=== PATIENT | female | born 1970 | race Caucasian/White ===

== ENCOUNTER 2020-04-09 01:09 | Emergency (ER) | payer BC ==
[~2020-04-09] VITALS: Ht 160 cm; Wt 54.0 kg
--- NOTE | 2020-04-09 01:20 | NUR ---
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 +NAUSEA, - VOMITING. LMP: 2 WEEKS AGO.
[2020-04-09] MEDS ORDERED: DICYCLOMINE HCL INJ 20 MG/2 ML AMPUL IM ONE ×2 (01:31→03:30)
[2020-04-09] MEDS ORDERED: ONDANSETRON HCL/PF 4 MG/2 ML VIAL ONE (01:31)
[2020-04-09] MEDS: DICYCLOMINE HCL INJ 20 MG/2 ML AMPUL IM ONE ×2 (01:39→03:35)
[2020-04-09] MEDS: IV NS 0.9% 1,000 ML BAG IV ONE (01:40)
[2020-04-09] MEDS: ONDANSETRON HCL/PF 4 MG/2 ML VIAL IVP ONE (01:40)
--- NOTE | 2020-04-09 01:40 | NUR ---
PT SIGNED WAIVER TO PROCEED WITH CT
--- NOTE | 2020-04-09 01:44 | NUR ---
PT WAS RAKEN TO CT
[2020-04-09 01:58] LABS: BILIRUBIN,URINE NEGATIVE (NEGATIVE); COLOR,URINE YELLOW (YELLOW); LEUKOCYTE ESTERASE ,URINE NEGATIVE (NEGATIVE); NITRITE, URINE NEGATIVE (NEGATIVE); PH,URINE 6.5 (5.0-8.0); PROTEIN,URINE NEGATIVE (NEGATIVE); UGLUCOSE NEGATIVE (NEGATIVE); UROBILINOGEN,URINE 0.2 EU/dL (0.2)
[2020-04-09] MEDS ORDERED: KETOROLAC TROMETHAMINE INJ 30 MG/ML VIAL ONE (02:01)
[2020-04-09 02:03] LABS: CARBON DIOXIDE 28 mmol/L (21-32); CHLORIDE 101 mmol/L (98-107); CREATININE 0.9 mg/dL (0.6-1.3); GLUCOSE 130 mg/dL (74-106); POTASSIUM 3.5 mmol/L (3.5-5.1); SODIUM SERUM 140 mmol/L (136-145); UREA NITROGEN, BLOOD 19 mg/dL (7-18)
[2020-04-09 02:04] LABS: BASOPHILS % (AUTO) 0.7 % (0.0-2.0); EOSINOPHILS % (AUTO) 1.5 % (0.0-6.0); HEMATOCRIT 41 % (33-45); HEMOGLOBIN 13.8 g/dL (11.5-14.8); LYMPHOCYTES # (AUTO) 1.8 /CMM (0.8-4.8); LYMPHOCYTES % (AUTO) 26.2 % (20.0-44.0); MEAN CORPUSCULAR HGB CONC 34 g/dl (31.0-36.0); MEAN CORPUSCULAR VOLUME 86 fL (82-100); MONOCYTES # (AUTO) 0.7 /CMM (0.1-1.30); MONOCYTES % (AUTO) 10.2 % (2.0-12.0); NEUTROPHILS # (AUTO) 4.2 /CMM (1.8-8.9); NEUTROPHILS % (AUTO) 61.4 % (43.0-81.0); PLATELET COUNT (AUTO) 245 /CMM (150-450); RED BLOOD CELL COUNT(AUTO) 4.73 MIL/uL (4.0-5.2); WHITE BLOOD COUNT (AUTO) 6.8 K/uL (4.3-11.0)
[2020-04-09] MEDS ORDERED: SIMETHICONE 80 MG TAB.CHEW ONE (02:04)
[2020-04-09] MEDS: SIMETHICONE 80 MG TAB.CHEW PO ONE (02:05)
[2020-04-09] MEDS: KETOROLAC TROMETHAMINE INJ 30 MG/ML VIAL IV ONE (02:06)
[2020-04-09 02:09] LABS: ALANINE AMINOTRANSFERASE 25 U/L (12-78); ALKALINE PHOSPHATASE 53 U/L (46-116); ASPARTATE AMINOTRANSFERASE 22 U/L (15-37); BILIRUBIN,TOTAL 0.2 mg/dL (0.2-1.0); LIPASE 248 U/L (73-393); TOTAL PROTEIN, SERUM 7.6 g/dL (6.4-8.2)
[2020-04-09] MEDS ORDERED: MORPHINE SULFATE INJ 4 MG/ML DISP.SYRIN ONE (02:27)
[2020-04-09] MEDS: MORPHINE SULFATE INJ 2 MG/ML DISP.SYRIN IV ONE (02:28)
[2020-04-09] MEDS ORDERED: ONDA4TAB5 PO (02:47)
[2020-04-09] MEDS ORDERED: SIME80TA15 PO (02:47)
[2020-04-09] MEDS ORDERED: DICY10CA37 PO (02:47)
--- NOTE | 2020-04-09 03:02 | NUR ---
DR JARVIS AT [facility] SIDE
[2020-04-09] MEDS ORDERED: HYDR-3976 PO (03:07)
--- NOTE | 2020-04-09 03:37 | NUR ---
pt is medically stable for d/c. IV removed. Catheter intact and site benign. Pressure and 4x4 applied to site. No bleeding noted.Patient discharged to home in stable condition. Rx and Written and verbal after care instructions given. Patient verbalizes understanding of instruction. pt is getting an uber to get back home
[2020-04-09 03:40] VITALS: BP 106/60
== END 2020-04-09 03:41 | disposition home or self-care (01) ==
LOC: ER 01:11
DX: K52.9 Noninfective gastroenteritis and colitis, unspecified (principal); Z79.899 Other long term (current) drug therapy
CPT/HCPCS: 36415; 71045; 74176; 80048; 80076; 81003; 83690; 84484; 85025; 85730; 93005; 96372 ×2; 96374; 96375; 99285; J0500 ×2; J1885; J2270; J2405; J7030